=== PATIENT | female | born 2000 | race Asian ===

== ENCOUNTER 2024-04-06 15:55 | Emergency (ER) | payer OTHER, SELFPAY ==
[2024-04-06 15:57] VITALS: BP 126/89
[2024-04-06 16:16] VITALS: BMI 21.0
--- NOTE | 2024-04-06 16:29 | ED.GENMED ---
History of Present Illness
General
Chief Complaint: Back Pain
Source: patient
Time Seen by Provider: 04/06/24 16:09
History of Present Illness
History of Present Illness:
23yoF with no significant past medical history presenting with her for evaluation of tailbone pain x 2-3 weeks. Pain is worse with sitting and standing. Patient had a similar pain about 9 months ago after she gave to her daughter.
The pain lasted a few weeks at that time before resolving. The pain has recurred a few weeks ago. She denies any trauma to the area. No swelling or lumps. No fevers. No bowel or bladder dysfunction. She has not been using anything
[id number] for her symptoms.
Phy Exam
General Physical Exam
General Presentation: well appearing and no apparent distress
General age: appears stated age
General Skin: warm and dry
General Habitus: normal
General Mental: alert
ENT Exam
ENT Exam: normocephalic
Pulmonary Exam
Pulmonary Exam: no respiratory distress
[place] Coma Scale
Eye Opening: Spontaneous
Verbal Response: Oriented
Motor Response: Obeys Commands
GCS Total Score: 15
Musculoskeletal Exam
Musculoskeletal Exam: other (+Reproducible tenderness at coccyx. No overlying skin changes, fluctuance, erythema, or warmth. )
Skin Exam
Skin Exam: normal color and warm/dry
Psychiatric Exam
Psychiatric Exam: normal mood/affect
Course
Orders/Labs/Results
Orders:
Orders
04/06/24 16:00
CR Lumbar Spine Comp Min 4 Vw* Urgent
Comment:
Reason For Exam: pain
04/06/24 16:27
Acetaminophen [Tylenol] 1,000 mg PO NOW STA
Ibuprofen [Motrin] 600 mg PO NOW STA
Vital Signs
Initial and Last Documented VS:
Initial Vital Signs
Temp Pulse Resp BP Pulse Ox
98.3 F 99 20 126/89 96
04/06/24 15:57 04/06/24 15:57 04/06/24 15:57 04/06/24 15:57 04/06/24 15:57
Last Documented Vital Signs
Temp Pulse Resp BP Pulse Ox
98.3 F 99 20 126/89 96
04/06/24 15:57 04/06/24 15:57 04/06/24 15:57 04/06/24 15:57 04/06/24 15:57
MDM/Problems Addressed
Differential Diagnosis Includes:
23yoF here with atraumatic coccyx pain x 2-3 weeks. No bowel or bladder dysfunction. No fevers. She is afebrile and hemodynamically stable. She is well-appearing in no acute distress. There is reproducible tenderness at her coccyx on exam. No
skin changes in the area and no evidence of a pilonidal cyst or abscess. Differential diagnosis includes coccydynia versus coccyx fracture
Lumbar spine x-rays obtained which are negative for fractures. Supportive care discussed including as needed NSAIDs and a donut pillow. She was advised to follow-up with her PCP. ED return precautions discussed. She was discharged in stable
condition.
*Critical Care Note
Total Time (30-74mins, 75-104mins- exclusive of procedures): Not Applicable
ED Attending Note
-
Portions of this chart may have been created with voice recognition software.� Occasional wrong word or��sound alike� substitutions may have occurred due to the inherent limitations of voice recognition software.
Discharge Plan
Departure
Patient Disposition: Home (Routine Discharge)
Date of Disposition: 04/06/24
Time of Disposition: 17:07
Patient with high blood pressure during this ER visit?: No
Discharge Problem:
Coccydynia
Instructions: Coccyx Injury ED
Prescriptions:
No Action
ibuprofen 600 mg Tablet
600 mg PO Q6HPRN PRN (Reason: moderate pain/cramps) Qty: 90 0RF
Referrals:
Elvira Jimenez MD [Family Provider] -
Activity Restrictions/Additional Instructions:
Apply ice to affected area. Take Tylenol and ibuprofen as needed for pain. Use a donut pillow.
Please follow-up with your family doctor. Return to the ER with any new or worsening symptoms.
Interventions
Interventions:
*Risk Screen - Suicide Last Done: 04/06/24 15:57
*General Assessment Last Done: 04/06/24 15:57
*Neglect/Abuse Screening Last Done: 04/06/24 15:57
ED- Fall Risk Assessment Last Done: 04/06/24 16:16
*ED COVID-19 Vaccine History Last Done: 04/06/24 16:17
*Nursing Disposition Last Done: 04/06/24 17:45
ED-Musculoskeletal Assessment Last Done: 04/06/24 16:17
Discharge Date and Time
Discharge Date/Time: 04/06/24 17:53
Print Language: CITIZEN OF [place]
[2024-04-06] MEDS: TYLENOL 1000 MG PO (16:31)
[2024-04-06] MEDS: MOTRIN 600 MG PO (16:32)
== END 2024-04-06 17:53 | disposition home or self-care (01) ==
LOC: EMR 15:55
PROVIDERS: EMERGENCY PHYSICIAN Student in an Organized Health Care Education/Training Program; FAMILY PHYSICIAN Obstetrics & Gynecology
DX: M53.3 Sacrococcygeal disorders, not elsewhere classified (principal)
CPT/HCPCS: 99283; 72110

== ENCOUNTER 2025-04-01 19:22 | Emergency (ER) | payer SELFPAY ==
[2025-04-01 19:28] VITALS: BP 124/80
[2025-04-01 20:10] LABS: Hematocrit 35.9 % (37.0-47.0); Hemoglobin 11.6 g/dL (12.0-16.0); Mean Corp Hgb Conc. 32.3 g/dL (33.0-37.0); Mean Corpuscular Volume 79.6 fL (81.0-99.0); Nucleated Red Blood Cells % 0 %; Platelet Count 276 10^3/uL (130-400); Red Cell Dist. Width 13.6 % (11.5-14.5)
[2025-04-01 20:20] LABS: COVID-19 Antigen Negative (Negative)
[2025-04-01 20:30] LABS: ALT (SGPT) 44 U/L (0-35); AST (SGOT) 38 U/L (14-36); Albumin 4.7 g/dl (3.5-5.0); Alkaline Phosphatase 91 U/L (38-126); Blood Urea Nitrogen 9 mg/dl (7-17); Calcium 9.8 mg/dl (8.4-10.2); Carbon Dioxide 24 mmol/L (22-30); Chloride 106 mmol/L (98-107); Glucose 100 mg/dl (70-99); Potassium 4.1 mmol/L (3.5-5.1); Sodium 139 mmol/L (135-145); Total Protein 8.2 g/dl (6.3-8.2); eGFR > 60.00
[2025-04-01 22:28] VITALS: BP 110/73
--- NOTE | 2025-04-01 23:21 | ED.GENMED ---
History of Present Illness
General
Chief Complaint: Cold/Flu/URI Symptoms
Source: patient
Exam Limitations: none
Time Seen by Provider: 04/01/25 22:27
Nursing documentation reviewed up to this point in time: agreed with
History of Present Illness
History of Present Illness:
24-year-old female presents with complaints of a sore throat, cough, and fever for the past four days. Took Tylenol day 1 and fever has not returned. Feels sore throat is from cough. Developed pain in right lower back/flank area with her cough 2
days ago, then it subsided; The pain recurred today around 5 PM and persists, aggravated by deep breathing. Area tender to touch. Has had intermittent coughing fits.
Past History
Past History
ED Past Medical History: None
ED Past Surgical History: None
Social History
Tobacco: Non-smoker
Personal:
Living: with family
Employment: Not employed
Review of Systems
Review of Systems
Allergies reviewed?: Yes
All Other Systems: ROS reviewed and negative except as documented in HPI and ROS
Phy Exam
Physical Exam
Physical Exam:
GENERAL: No acute distress. A&Ox3.
CONSTITUTIONAL: Afebrile.
EYES: clear, conjunctivae normal
ENMT: moist mucus membranes, Pharynx nl
RESPIRATORY: Regular respirations, nonlabored, lungs clear. No significant cough during exam
CARDIOVASCULAR: Regular rate and rhythm, no murmurs, no rubs.
GI: Soft, nontender, normal BS
MUSCULOSKELETAL: Moves with ease. Well perfused.
SKIN: Warm, dry, pink
PSYCH: Normal mood and affect. Well kept, interactive and appropriate
NEUROLOGIC: Awake, alert and oriented. No focal neurological deficits
Course
Orders/Labs/Results
Orders:
Orders
04/01/25 19:31
CR Chest - 2 Views Urgent
Comment:
Reason For Exam: sob
04/01/25 19:49
COVID-19 Antigen Urgent
Source: Nasal Swab
Complete Blood Count/With Diff Urgent
Comprehensive Metabolic Panel Urgent
Influenza A+B Rapid Molecular Urgent
MATTHEW Source: Nasal Swab
Specimen Description:
04/01/25 23:17
Azithromycin [Zithromax] 500 mg PO NOW STA
Abnormal Lab Results
04/01/25
19:49
Hgb 11.6 L g/dL
(12.0-16.0)
Hct 35.9 L %
(37.0-47.0)
MCV 79.6 L fL
(81.0-99.0)
MCH 25.7 L pg
(27.0-31.0)
MCHC 32.3 L g/dL
(33.0-37.0)
MPV 11.5 H fL
(7.4-10.4)
Absolute Monos (auto) 0.7 H 10^3/uL
(0.1-0.6)
Creatinine 0.5 L mg/dL
(0.6-1.0)
Glucose 100 H mg/dl
(70-99)
AST 38 H U/L
(14-36)
ALT 44 H U/L
(0-35)
04/01/25 19:49
04/01/25 19:49
Vital Signs
Initial and Last Documented VS:
Initial Vital Signs
Temp Pulse Resp BP Pulse Ox
98.0 F 89 18 124/80 99
04/01/25 19:28 04/01/25 19:28 04/01/25 19:28 04/01/25 19:28 04/01/25 19:28
Last Documented Vital Signs
Temp Pulse Resp BP Pulse Ox
97.6 F 90 20 110/73 100
04/01/25 22:28 04/01/25 22:28 04/01/25 22:28 04/01/25 22:28 04/01/25 23:26
MDM/Problems Addressed
Differential Diagnosis Includes:
Viral URI, atypical pneumonia, pneumonia, bronchitis
Musculoskeletal pain due to coughing
MDM/Problems Addressed:
24-year-old female presents with complaints of a sore throat, cough, and fever for the past four days. Took Tylenol day 1 and fever has not returned. Feels sore throat is from cough. Developed pain in right lower back/flank area with her cough 2
days ago, then it subsided; The pain recurred today around 5 PM and persists, aggravated by deep breathing. Area tender to touch. Has had intermittent coughing fits.
Afebrile, NAD
CBC,CMP with no clinically significant abnormality
COVID-negative
Chest x-ray radiology report read NAD
Plan: Treat for bronchitis/atypical pneumonia with azithromycin
Stable for discharge
*Pulse Oximetry
SaO2: 100
Oxygen Mode of Delivery: Room air
Patient hypoxic: no
*Critical Care Note
Total Time (30-74mins, 75-104mins- exclusive of procedures): Not Applicable
ED Attending Note
-
Portions of this chart may have been created with voice recognition software.� Occasional wrong word or��sound alike� substitutions may have occurred due to the inherent limitations of voice recognition software.
Discharge Plan
Departure
Patient Disposition: Home (Routine Discharge)
Date of Disposition: 04/01/25
Time of Disposition: 23:17
Patient with high blood pressure during this ER visit?: No
Condition: Good
Discharge Problem:
Back strain, Acute bronchitis
Instructions: Muscle strain, Acute Bronchitis, Adult (DC)
Prescriptions:
New
azithromycin [Zithromax] 250 mg tablet
250 mg PO DAILY Qty: 4 0RF
No Action
ibuprofen 600 mg Tablet
600 mg PO Q6HPRN PRN (Reason: moderate pain/cramps) Qty: 90 0RF
Referrals:
Zara Peña MD [Family Provider, Internal Medicine] - As needed
Activity Restrictions/Additional Instructions:
As we discussed, ibuprofen 600 mg every 6 hours as needed for back muscle pain. Heating pad or warm compress may help
I sent a prescription to your pharmacy for azithromycin to take 250 mg a day for the next 4 days starting tomorrow as you were given a dose here tonight.
Drink plenty of fluids
See your doctor in 1 week if you are not much better by then
Interventions
Interventions:
*Risk Screen - Suicide Last Done: 04/01/25 19:32
*General Assessment Last Done: 04/01/25 22:29
*Neglect/Abuse Screening Last Done: 04/01/25 19:32
*ED- Fall Risk Assessment Last Done: 04/01/25 22:29
*ED COVID-19 Vaccine History Last Done: 04/01/25 22:29
*Nursing Disposition Last Done: 04/01/25 23:40
ED- Pulmonary Assessment Last Done: 04/01/25 22:29
Discharge Date and Time
Discharge Date/Time: 04/01/25 23:40
Print Language: [id number]
[2025-04-01] MEDS: ZITHROMAX 500 MG PO (23:35)
== END 2025-04-01 23:40 | disposition home or self-care (01) ==
LOC: EMR 19:22
PROVIDERS: Emergency Medicine; EMERGENCY PHYSICIAN Emergency Medicine; FAMILY PHYSICIAN Internal Medicine
DX: S39.012A Strain of muscle, fascia and tendon of lower back, initial encounter (principal); J20.9 Acute bronchitis, unspecified; X58.XXXA Exposure to other specified factors, initial encounter
CPT/HCPCS: 99283; 71046; 80053; 85025; 87502; 87811